=== PATIENT | male | born 1990 | race African-American/Black ===

== ENCOUNTER 2019-08-16 14:36 | Emergency (ER) | payer MEDICAID ==
[~2019-08-16] VITALS: Ht 160 cm; Wt 59.0 kg
[2019-08-16] MEDS ORDERED: ACETAMINOPHEN 500MG TABLET PO ONE (20:45)
[2019-08-16] MEDS ORDERED: METOCLOPRAMIDE HCL 10MG TABLET PO ONE (20:45)
[2019-08-16 23:52] VITALS: BP 121/75
== END 2019-08-16 23:52 | disposition home or self-care (01) ==
LOC: ER 14:36
DX: R51 Headache (principal); I10 Essential (primary) hypertension
CPT/HCPCS: 70450; 99284; J8597